=== PATIENT | male | born 1990 | race Caucasian/White ===

== ENCOUNTER 2025-02-12 00:17 | Emergency (ER) | payer BC ==
[~2025-02-12] VITALS: Ht 177.8 cm; Wt 99.8 kg
[2025-02-12] MEDS ORDERED: TDAP [DIPH/PERTUSSIS/TET] 0.5 ML VIAL IM ONE (00:33)
[2025-02-12] MEDS: TDAP [DIPH/PERTUSSIS/TET] 0.5 ML VIAL IM ONE (00:37)
[2025-02-12] MEDS ORDERED: IBUP-1490 PO (01:13)
[2025-02-12 01:25] VITALS: BP 135/95; TEMP 98.1; O2SAT 98
== END 2025-02-12 01:25 | disposition home or self-care (01) ==
LOC: ER 00:20
DX: S01.112A Laceration without foreign body of left eyelid and periocular area, initial encounter (principal); V29.31XA Electric (assisted) bicycle (driver) (passenger) injured in unspecified nontraffic accident, initial encounter; Y93.89 Activity, other specified; Y92.488 Other paved roadways as the place of occurrence of the external cause; Y99.8 Other external cause status
CPT/HCPCS: 70486-TC; 90715